=== PATIENT | male | born 1990 | race Hispanic/Latino ===

== ENCOUNTER 2022-11-10 20:06 | Emergency (ER) | payer MEDICAID, OTHER, SELFPAY | END 2022-11-10 21:40 | LOC: CSHERS 20:06 | DX: S93.401A Sprain of unspecified ligament of right ankle, initial encounter (principal); F17.210 Nicotine dependence, cigarettes, uncomplicated; X50.0XXA Overexertion from strenuous movement or load, initial encounter ==